=== PATIENT | female | born 1985 | race Caucasian/White ===

== ENCOUNTER → 2021-02-24 | Outpatient (CLI) | payer OTHER ==
[~2021-02-24] MED LIST: BUPRENORPHINE HC8 MG SL; COLACE100 MG PO; LEVOTHYROXINE300 MCG PO; PRENATABS FA T1 EACH PO; PROZAC40 MG PO
[2021-02-24 16:24] LABS: HEMOGLOBIN 13.7 gm/dl (12.3-15.3); RED BLOOD COUNT 4.66 M/UL (4.00-5.10); WHITE BLOOD COUNT 5.7 K/UL (4.5-11.0)
[2021-02-24 16:48] LABS: BUN/CREATININE RATIO 21 (0-10)
[2021-02-26 11:15] LABS: RHEUMATOID ARTHRITIS FACTOR <10.0 IU/mL (0.0-13.9)
[2021-02-26 23:11] LABS: CCP ANTIBODIES IGG/IGA 3 units (0-19)
== END ==
LOC: LAB 15:03
PROVIDERS: Internal Medicine
DX: M79.10 Myalgia, unspecified site (principal); M25.50 Pain in unspecified joint; L56.8 Other specified acute skin changes due to ultraviolet radiation
CPT/HCPCS: 36415; 80053; 82728; 83520; 85025; 86200; 86431